=== PATIENT | male | born 2000 | race African-American/Black ===

== ENCOUNTER 2020-12-25 19:46 | Emergency (ER) | payer SELFPAY ==
[2020-12-25 20:29] LABS: #Basophils 0.1 thou/uL (0.0-0.2); #Eosinphils 0.4 thou/uL (0.0-0.7); #Lymphocytes 1.6 thou/uL (1.20-3.40); #Monocytes 0.6 thou/uL (0.11-0.59); #Neutrophils 8.7 thou/uL (1.40-6.50); %Basophils 0.5 % (0.0-1.0); %Eosinophils 3.7 % (0.0-10.0); %Lymphocytes 14.2 % (28.0-48.0); %Monocytes 5.2 % (0.0-4.0); %Neutrophils 76.4 % (31.0-61.0); Hemoglobin 17.3 g/dL (14.0-18.0); Mean Corpuscular HGB CONC 34.1 g/dL (32.0-36.0); Mean Corpuscular Hemoglobin 29.8 pg (25.0-35.0); Mean Corpuscular Volume 87.3 fL (78.0-98.0); Mean Platelet Volume 9.7 fL (7.4-10.4); Platelet Count 198 thou/uL (130-400); RBC Distribution Width 12.1 % (11.5-14.5); Red Blood Cell (RBC) Count 5.82 mill/uL (4.00-5.20); White Blood Cell (WBC) Count 11.4 thou/uL (4.8-10.8)
[2020-12-25 20:37] LABS: Prothrombin Time 12.9 sec (12.0-14.7)
[2020-12-25 20:40] LABS: PTT 20.4 sec (22.9-36.1)
[2020-12-25 20:49] LABS: ALT (SGPT) 40 U/L (8-55); AST (SGOT) 48 U/L (5-34); Albumin 4.3 g/dL (3.5-5.0); Alkaline Phosphatase 61 U/L (50-130); Anion Gap 14 mmol/L (10-20); BUN (Urea Nitrogen) 11 mg/dL (8.9-20.6); Bilirubin, Total 1.3 mg/dL (0.2-1.2); Calc. Creatinine Clearance 0 mL/min (70-130); Calcium 9.7 mg/dL (7.8-10.44); Carbon Dioxide 20 mmol/L (22-29); Chloride 107 mmol/L (98-107); Globulin 3.5 g/dL (2.4-3.5); Glucose 126 mg/dL (70-105); Potassium 4.4 mmol/L (3.5-5.1); Protein, Total 7.8 g/dL (6.0-8.3); Sodium 137 mmol/L (136-145)
[2020-12-25] MEDS ORDERED: Magnesium 2 GM/50 ML BAG (IN WATER) ONE (22:15)
[2020-12-25] MEDS ORDERED: methylPREDNISolone Sod Succ/PF 125 MG/2 ML VIAL ONE (22:15)
[2020-12-25] MEDS ORDERED: Albuterol Sulfate 2.5 mg/3 ml Neb ONE (22:33)
[2020-12-25 23:51] LABS: SARS-CoV-2 NAA Rapid Test Not Detected (NotDetected)
[2020-12-26] MEDS ORDERED: cefTRIAXone\\ROCEPHIN 1 GM VIAL ONE (00:10)
[2020-12-26] MEDS ORDERED: Albuterol Sulfate 2.5 mg/0.5 ml Neb ONE ×2 (00:30)
[2020-12-26 00:36] LABS: Bilirubin Negative (Negative); Blood, Urine Negative (Negative); Clarity Clear (Clear); Glucose, Urine (Dipstick) Normal (Negative); Ketone, Urine 20 mg/dL (Negative); Leukocyte Negative Leu/uL (Negative); Nitrite Negative (Negative); Protein, Urine (Dipstick) Negative (Neg-Trace); Specific Gravity, Urine 1.023 (1.002-1.036)
[2020-12-26] MEDS ORDERED: Azithromycin 500 MG VIAL ONE (00:44)
== END 2020-12-26 01:55 | disposition left against medical advice (07) ==
LOC: ERS 19:46
DX: J18.9 Pneumonia, unspecified organism (principal); J45.901 Unspecified asthma with (acute) exacerbation; Z20.822 Contact with and (suspected) exposure to COVID-19; F17.220 Nicotine dependence, chewing tobacco, uncomplicated; Z79.899 Other long term (current) drug therapy
CPT/HCPCS: 0240U; 71045; 80053; 81003; 83605; 85025; 85610; 85730; 87040; 87086; 94640; 94644; 94760; 96365; 96367; 96375; J0456; J0696; J2930; J3475; J7611; J7620

== ENCOUNTER 2021-01-01 03:52 | Emergency (ER) | payer SELFPAY ==
[2021-01-01] MEDS ORDERED: Boostrix 0.5 ML (Tdap) VIAL ONE ×2 (04:05→04:23)
[2021-01-01] MEDS ORDERED: Ketorolac Tromethamine 30 MG/ML VIAL ONE (04:07)
[2021-01-01 04:12] LABS: #Eosinphils 0.4 thou/uL (0.0-0.7); #Lymphocytes 3.3 thou/uL (1.20-3.40); #Monocytes 1.6 thou/uL (0.11-0.59); %Basophils 0.3 % (0.0-1.0); %Eosinophils 3.1 % (0.0-10.0); %Lymphocytes 24.8 % (28.0-48.0); %Monocytes 11.7 % (0.0-4.0); %Neutrophils 60.1 % (31.0-61.0); Hemoglobin 16.5 g/dL (14.0-18.0); Mean Corpuscular HGB CONC 35.7 g/dL (32.0-36.0); Mean Corpuscular Hemoglobin 31.2 pg (25.0-35.0); Mean Corpuscular Volume 87.4 fL (78.0-98.0); Mean Platelet Volume 9.8 fL (7.4-10.4); Platelet Count 231 thou/uL (130-400); RBC Distribution Width 11.9 % (11.5-14.5); Red Blood Cell (RBC) Count 5.29 mill/uL (4.00-5.20); White Blood Cell (WBC) Count 13.3 thou/uL (4.8-10.8)
[2021-01-01 04:24] LABS: Prothrombin Time 13.1 sec (12.0-14.7)
[2021-01-01] MEDS ORDERED: Albuterol Sulfate 2.5 mg/3 ml Neb ONE (04:33)
[2021-01-01 04:37] LABS: ALT (SGPT) 39 U/L (8-55); AST (SGOT) 30 U/L (5-34); Albumin 4.4 g/dL (3.5-5.0); Alkaline Phosphatase 58 U/L (50-130); Anion Gap 14 mmol/L (10-20); BUN (Urea Nitrogen) 11 mg/dL (8.9-20.6); Bilirubin, Total 0.5 mg/dL (0.2-1.2); Calc. Creatinine Clearance 0 mL/min (70-130); Calcium 9.9 mg/dL (7.8-10.44); Carbon Dioxide 23 mmol/L (22-29); Chloride 106 mmol/L (98-107); Glucose 122 mg/dL (70-105); Lipase 13 U/L (8-78); Potassium 3.9 mmol/L (3.5-5.1); Protein, Total 7.4 g/dL (6.0-8.3); Sodium 139 mmol/L (136-145)
[2021-01-01] MEDS ORDERED: Iopamidol-370 76% 500 ML 1 ML ONE (08:58)
== END 2021-01-01 06:37 ==
LOC: ERS 03:52
DX: S31.131A Puncture wound of abdominal wall without foreign body, left upper quadrant without penetration into peritoneal cavity, initial encounter (principal); J45.909 Unspecified asthma, uncomplicated; F17.220 Nicotine dependence, chewing tobacco, uncomplicated; Z79.899 Other long term (current) drug therapy; Z23 Encounter for immunization; W34.00XA Accidental discharge from unspecified firearms or gun, initial encounter
CPT/HCPCS: 36415; 71045; 71260; 74018; 74177; 80053; 83605; 83690; 85025; 85610; 85730; 86850; 86900; 86901; 90471; 90715; 96365; G0390; J0690; J1885; J7611; Q9967

== ENCOUNTER 2021-01-18 11:00 | Emergency (ER) | payer SELFPAY ==
[2021-01-18 12:15] LABS: #Basophils 0.1 thou/uL (0.0-0.2); #Eosinphils 1.2 thou/uL (0.0-0.7); #Lymphocytes 1.6 thou/uL (1.20-3.40); #Monocytes 0.7 thou/uL (0.11-0.59); %Basophils 1.2 % (0.0-1.0); %Eosinophils 21.8 % (0.0-10.0); %Lymphocytes 28.5 % (28.0-48.0); %Monocytes 12.6 % (0.0-4.0); %Neutrophils 35.9 % (31.0-61.0); Hemoglobin 14.8 g/dL (14.0-18.0); Mean Corpuscular HGB CONC 33.5 g/dL (32.0-36.0); Mean Corpuscular Hemoglobin 29.8 pg (25.0-35.0); Mean Corpuscular Volume 88.9 fL (78.0-98.0); Mean Platelet Volume 8.9 fL (7.4-10.4); Platelet Count 193 thou/uL (130-400); RBC Distribution Width 11.7 % (11.5-14.5); Red Blood Cell (RBC) Count 4.95 mill/uL (4.00-5.20); White Blood Cell (WBC) Count 5.7 thou/uL (4.8-10.8)
[2021-01-18] MEDS ORDERED: Dexamethasone 4 mg/ml Vial ONE (12:34)
[2021-01-18 12:48] LABS: ALT (SGPT) 40 U/L (8-55); AST (SGOT) 43 U/L (5-34); Albumin 3.9 g/dL (3.5-5.0); Alkaline Phosphatase 52 U/L (50-130); Anion Gap 12 mmol/L (10-20); BUN (Urea Nitrogen) 8 mg/dL (8.9-20.6); Bilirubin, Total 0.8 mg/dL (0.2-1.2); Calc. Creatinine Clearance 0 mL/min (70-130); Calcium 9.1 mg/dL (7.8-10.44); Carbon Dioxide 24 mmol/L (22-29); Chloride 108 mmol/L (98-107); Globulin 2.5 g/dL (2.4-3.5); Glucose 101 mg/dL (70-105); Potassium 4.1 mmol/L (3.5-5.1); Protein, Total 6.4 g/dL (6.0-8.3); Sodium 140 mmol/L (136-145)
[2021-01-18] MEDS ORDERED: Bacitracin 1 PK ONE (14:55)
== END 2021-01-18 15:08 ==
LOC: ERS 11:00
DX: J45.901 Unspecified asthma with (acute) exacerbation (principal); F17.220 Nicotine dependence, chewing tobacco, uncomplicated
CPT/HCPCS: 36415; 71045; 80053; 85025; 93005; 94640; 96374; J1100; J7620